=== PATIENT | female | born 1970 | race Caucasian/White ===

== ENCOUNTER → 2016-09-23 | Outpatient (CLI) | payer BC | LOC: MC.RAD 13:08 | DX: Z12.31 Encounter for screening mammogram for malignant neoplasm of breast (principal) ==

== ENCOUNTER → 2017-09-27 | Outpatient (CLI) | payer BC | LOC: MC.RAD 13:56 | DX: Z12.31 Encounter for screening mammogram for malignant neoplasm of breast (principal) ==

== ENCOUNTER → 2018-10-23 | Outpatient (CLI) | payer BC | LOC: MC.RAD 13:47 | DX: Z12.31 Encounter for screening mammogram for malignant neoplasm of breast (principal) ==

== ENCOUNTER → 2022-04-06 | Outpatient (CLI) | payer BC | LOC: MC.RAD 06:50 | DX: Z12.31 Encounter for screening mammogram for malignant neoplasm of breast (principal) ==